=== PATIENT | female | born 1960 | race Caucasian/White ===

== ENCOUNTER 2020-07-19 16:32 | Observation (INO) ==
[2020-07-19] MEDS ORDERED: Ondansetron 4 MG/2 ML VIAL IVP PRN (21:41)
[2020-07-19] MEDS ORDERED: Perflutren Lipid Microsphere 1.3 ML in 0.9 % Sodium Chloride 8.7 ML IVP PRN (21:41)
[2020-07-19] MEDS ORDERED: Naloxone 0.4 MG/ML INJ IVP PRN (21:41)
[2020-07-19] MEDS ORDERED: Nitroglycerin 0.4 MG TAB.SUBL SL PRN (22:12)
[2020-07-19] MEDS ORDERED: Ipratropium/Albuterol Neb 3 ML IH PRN (22:30)
[2020-07-19] MEDS: ALPRAZolam 0.5 MG TABLET PO PRN (23:36)
[2020-07-20 06:08] LABS: Basophils % 0.6 %; Eosinophils # 0.1 K/mcL (0.0-0.6); Eosinophils % 1.7 %; Hematocrit 37.2 % (35.3-44.9); Hemoglobin 11.8 g/dL (11.5-15.4); Immature Granulocytes % 0.3 % (0-4); Lymphocytes # 1.1 K/mcL (0.6-4.6); Lymphocytes % 30.3 %; Mean Corpuscular HGB Conc 31.7 g/dL (31.6-35.5); Mean Corpuscular Hemoglobin 29.2 pg (28.0-33.3); Mean Corpuscular Volume 92.1 fL (83.0-100.0); Mean Platelet Volume 9.8 fL (9.4-12.4); Monocytes # 0.3 K/mcL (0.0-1.3); Monocytes % 8.4 %; Platelet Count 177 K/mcL (140-400); Red Blood Count 4.04 M/mcL (3.82-4.97); Red Cell Distribution Width 13.2 % (11.5-14.5); Segmented Neutrophils % 58.7 %; White Blood Count 3.5 K/mcL (4.3-11.1)
[2020-07-20 06:29] LABS: Chol/HDL Ratio 2.1 (0-4.9)
[2020-07-20 06:36] LABS: BUN/Creatinine Ratio 20 (6-26); Blood Urea Nitrogen 10 mg/dL (6-20); Calcium 8.7 mg/dL (8.6-10.3); Carbon Dioxide 29 mEq/L (23-29); Chloride 110 mEq/L (98-107); Glucose 97 mg/dL (70-105); Osmolality,Calculated 299 (280-300); Potassium 3.9 mEq/L (3.5-5.1); Sodium 145 mEq/L (136-145); Troponin I < 0.03 ng/mL (< 0.04); eGFR For African Americans > 60 (> 60); eGFR For Non-African Americans > 60 (> 60)
[2020-07-20] MEDS ORDERED: amLODIPine 5 MG TABLET PO SCH (09:00)
[2020-07-20] MEDS ORDERED: Aspirin 81 MG TAB.CHEW PO SCH (09:00)
[2020-07-20] MEDS ORDERED: lisinopriL 20 MG TABLET PO SCH (09:00)
[2020-07-20] MEDS: ALPRAZolam 0.5 MG TABLET PO PRN (09:25)
[2020-07-20 11:48] VITALS: BP 116/74
== END 2020-07-20 14:35 | disposition home or self-care (01) ==
LOC: 3BNU → SUATTDRO 18:11
PROVIDERS: ADMIT Internal Medicine; ATTEND Registered Nurse